=== PATIENT | male | born 1960 | race Caucasian/White ===

== ENCOUNTER 2024-08-19 12:56 | Emergency (ER) | payer MEDICARE, BC, SELFPAY ==
[2024-08-19] VITALS (12 sets, daily range): BP systolic 130–179; BP diastolic 66–81; PULSE 64–89; RESP 18; TEMP 36.9; O2SAT 98–99; BMI 20.2
--- NOTE | 2024-08-19 13:56 | DI.CT.S_ITS ---
PROCEDURE: CT HEAD/BRAIN WO CON INDICATIONS: Blurry vision right eye. Unequal pupils TECHNIQUE: Noncontrast 4.5 mm thick angled axial sections acquired from the foramen magnum to the vertex, with coronal and sagittal reformats. For radiation dose reduction, the following was used: automated exposure control, adjustment of mA and/or kV according to patient size. COMPARISON: None. FINDINGS: Image quality: Diagnostic CSF spaces: Basal cisterns are patent. Lateral ventricles are symmetric. Volume: Vascular calcifications. 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 Volume loss is present. These findings are [id number] Brain: No acute hemorrhage. No gross loss of bone-white differentiation Craniofacial structures: Opacification of the right posterior ethmoids. No significant paranasal sinus opacity otherwise. IMPRESSION: No acute intracranial pathology. If there is high concern for parenchymal pathology, consider further evaluation with MRI. Dictated by: Daljit Schwartz M.D. on 08/19/2024 at 13:33 Approved by: Daljit Schwartz M.D. on 08/19/2024 at 13:34
--- NOTE | 2024-08-19 15:16 | ED_ITS ---
HPI - Eye Problem General Chief complaint: Eye Problems Stated complaint: R Eye Vision Disturbance Time Seen by Provider: 08/19/24 13:52 Mode of arrival: Ambulatory History of Present Illness HPI Narrative: 64 years old male with history of cataract came in today complaining of sudden decreased vision right eye and increased floating right eye. He denied any tearing, redness, injury to the right eye. He denied any fever, headache, nausea vomiting, changes on his left eye vision, facial droop, slurred speech, numbness weakness on 1 side of his body. Related Data Home Medications ?Medication ?Instructions ?Recorded ?Confirmed LORATADINE/PSEUDOEPHEDRINE 1 tab PO QDAY ##0 08/15/12 (Claritin-D 24 Hour Tablet) Previous Rx's ?Medication ?Instructions ?Recorded AZELASTINE HCL (OPTIVAR 3 ML) 0 OP BID ##1 08/15/12 Fluticasone Propionate (FLONASE) 0 intranasal BID ##1 08/15/12 Allergies Allergy/AdvReac Type Severity Reaction Status Date / Time NSAIDS (Non-Steroidal Allergy Severe HIVES Unverified 08/19/24 13:07 Anti-Inflamma (NSAIDS (NON-STEROIDAL ANTI-INFLAMMA) Review of Systems Review of Systems Narrative: Positive for decreased vision right eye and increase fluid right eye. Negative for fever, headache, nausea vomiting, numbness weakness on 1 side of his body, facial droop, slurred speech, chest pain, shortness of breath. Patient History Smoking Status: Never smoker Exam Initial Vital Signs Initial Vital Signs: Vital Signs Temperature 98.5 F 08/19/24 13:07 Pulse Rate 89 08/19/24 13:07 Respiratory Rate 18 08/19/24 13:07 Blood Pressure 134/71 08/19/24 13:07 Pulse Oximetry 99 08/19/24 13:07 Oxygen Delivery Method Room Air 08/19/24 13:07 Const General: cooperative, well developed and No acute distress Eyes Other: 20/30 left eye, 20/25 on both eyes, unable to see with the right eye (corrected). Normal EOM. Clear cornea without conjunctivitis. No hyphema. Pupil was 4 mm right eye and 3 mm on the left eye. Both pupils were equal round and reactive to light. Neck Neck: supple Resp Other: Clear to auscultation bilaterally without rales or rhonchi or wheezing. No respiratory distress. Cardio Other: Normal S1-S2 without murmur. Normal rhythm and rate. GI Other: No tenderness on palpation, guarding or rebound tenderness. No distention. Skin General: no rashes or lesions noted Neuro Other: Alert oriented x4. Moving all extremities. Normal sensation on both arms and legs. No facial droop. Normal eye movement. No nystagmus. Course Course Course Narrative: Right eye pressure was 21 and left eye pressure was 17. Orders Ordered: ED Orders 08/19/24 13:56 CT head/brain wo con Stat Vital Signs Vital signs: Vital Signs - 8 hr 08/19/24 13:07 08/19/24 13:31 08/19/24 13:31 Temperature 98.5 F Pulse Rate 89 81 Respiratory Rate 18 Blood Pressure 134/71 158/72 H Pulse Oximetry 99 99 Oxygen Delivery Method Room Air Room Air 08/19/24 14:00 08/19/24 14:30 08/19/24 15:00 Temperature Pulse Rate 72 67 71 Respiratory Rate Blood Pressure Pulse Oximetry 99 99 99 Oxygen Delivery Method 08/19/24 15:01 08/19/24 15:01 Temperature Pulse Rate 69 Respiratory Rate 18 Blood Pressure 147/69 H Pulse Oximetry 99 Oxygen Delivery Method Room Air MDM - Eye Problem Imaging Data CT scan - head: Radiologist's Impression: PROCEDURE: CT HEAD/BRAIN WO CON INDICATIONS: Blurry vision right eye. Unequal pupils TECHNIQUE: Noncontrast 4.5 mm thick angled axial sections acquired from the foramen magnum to the vertex, with coronal and sagittal reformats. For radiation dose reduction, the following was used: automated exposure control, adjustment of mA and/or kV according to patient size. COMPARISON: None. FINDINGS: Image quality: Diagnostic CSF spaces: Basal cisterns are patent. Lateral ventricles are symmetric. Volume: Vascular calcifications. 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 Volume loss is present. These findings are [id number] Brain: No acute hemorrhage. No gross loss of bone-white differentiation Craniofacial structures: Opacification of the right posterior ethmoids. No significant paranasal sinus opacity otherwise. IMPRESSION: No acute intracranial pathology. If there is high concern for parenchymal pathology, consider further evaluation with MRI. Dictated by: Daljit Schwartz M.D. on 08/19/2024 at 13:33 Approved by: Daljit Schwartz M.D. on 08/19/2024 at 13:34 MDM Narrative Medical decision making narrative: 64 years old male came today complaining of sudden decreased vision right eye with lots of floaters in his right eye without any flashing, headache, nausea vomiting, eye injury. Eye exam showed 20/30 on the left eye, 20/25 both eyes with glasses and could not see all of his right eye but finger count. His pressure was right eye 21 and left eye 17. Pupil was round and react to light. 4 mm right pupil and 3 mm left pupil. Discussed the case with [facility] insurance advisor recommended transfer for evaluation in the ED. My differential diagnosis could be retinal detachment, vitreous hemorrhage. Bedside ultrasound showed possible detachment of the retina right eye. His CT brain showed no acute finding. Discharge Plan Departure Patient Disposition: [facility] Clinical Impression: Decreased vision of right eye Prescriptions: No Action LORATADINE/PSEUDOEPHEDRINE (Claritin-D 24 Hour Tablet) 1 tab PO QDAY Qty: 0 AZELASTINE HCL (OPTIVAR 3 ML) 0 OP BID Qty: 1 1RF Fluticasone Propionate (FLONASE) 0 Intranasal BID Qty: 1 1RF
== END 2024-08-19 18:20 | disposition short-term general hospital (02) ==
PROVIDERS: Emergency Provider Emergency Medicine
DX: H54.61 Unqualified visual loss, right eye, normal vision left eye (principal)
CPT/HCPCS: 36415; 70450; 99283; 99284